=== PATIENT | female | born 1985 | race Caucasian/White ===

== ENCOUNTER 2017-12-28 01:44 | Emergency (ER) | END 2017-12-28 01:56 | disposition left against medical advice (07) | LOC: ERS 01:44 | DX: Z53.21 Procedure and treatment not carried out due to patient leaving prior to being seen by health care provider (principal) ==

== ENCOUNTER 2017-12-28 06:28 | Emergency (ER) | payer SELFPAY ==
--- NOTE | 2017-12-28 07:37 | RAD ---
THREE VIEWS THORACIC SPINE: DATE: 12/28/17. HISTORY: Back injury. FINDINGS: The upper thoracic spine on the lateral view is partially obscured due to overlying osseous structure s. However, no vertebral body height loss is present. No definite fracture is seen, and there is no evidence of a subluxation. No other findings. IMPRESSION: No acute osseous abnormality visualized. POS: RICHELLE
--- NOTE | 2017-12-28 07:39 | RAD ---
THREE VIEWS LUMBAR SPINE: DATE: 12/28/17. HISTORY: Low back injury. FINDINGS: T12 ribs are hypoplastic. There are 5 [id number] lumbar-type vertebral bodies. Vertebral body heights are within normal limits. There is mild narrowing of the L5-S1 intervertebral disk space. T here is no fracture or subluxation seen involving the lumbar spine. There is straightening of normal lumbar curvature. IMPRESSION: No acute osseous abnormality involving the lumbar spine. POS: JORJE
[2017-12-28] MEDS ORDERED: Ketorolac Tromethamine 60 MG/2 ML VIAL ONE (07:42)
== END 2017-12-28 08:27 | disposition home or self-care (01) ==
LOC: ERS 06:28
DX: S39.012A Strain of muscle, fascia and tendon of lower back, initial encounter (principal); F17.210 Nicotine dependence, cigarettes, uncomplicated; W10.9XXA Fall (on) (from) unspecified stairs and steps, initial encounter
CPT/HCPCS: 72072; 72100; 96372; J1885

== ENCOUNTER 2018-01-27 05:45 | Emergency (ER) | payer SELFPAY ==
[2018-01-27] MEDS ORDERED: Ondansetron PF 4 MG/2 ML Vial ONE (06:04)
[2018-01-27] MEDS ORDERED: Metoclopramide HCl 10 MG/2 ML VIAL ONE (06:17)
[2018-01-27 06:28] LABS: #Eosinphils 0.1 thou/uL (0.0-0.7); #Monocytes 0.4 thou/uL (0.11-0.59); %Basophils 0.4 % (0.0-1.0); %Eosinophils 0.8 % (0.0-10.0); %Lymphocytes 19.2 % (21.0-51.0); %Monocytes 4.2 % (0.0-10.0); %Neutrophils 75.4 % (42.0-75.0); Hemoglobin 13.2 g/dL (12.0-16.0); Mean Corpuscular HGB CONC 33.3 g/dL (32.0-36.0); Mean Corpuscular Hemoglobin 32.5 pg (27.0-31.0); Mean Corpuscular Volume 97.4 fL (78.0-98.0); Mean Platelet Volume 7.2 fL (7.4-10.4); Platelet Count 274 thou/uL (130-400); RBC Distribution Width 14.5 % (11.5-14.5); Red Blood Cell (RBC) Count 4.07 mill/uL (4.20-5.40); White Blood Cell (WBC) Count 10.6 thou/uL (4.8-10.8)
[2018-01-27 06:32] LABS: BHCG - Serum Negative (NEGATIVE); Pregs Control Background? CLEAR/WHITE (CLR/WHITE); Pregs Control Bar Appear? YES (CONTROL BAR)
[2018-01-27 06:39] LABS: ALT (SGPT) 9 U/L (8-55); AST (SGOT) 58 U/L (5-34); Albumin 3.9 g/dL (3.5-5.0); Alkaline Phosphatase 131 U/L (40-150); Anion Gap 18 mmol/L (10-20); BUN (Urea Nitrogen) 9 mg/dL (7.0-18.7); Bilirubin, Total 1.3 mg/dL (0.2-1.2); Calc. Creatinine Clearance 0 mL/min (70-130); Carbon Dioxide 28 mmol/L (22-29); Chloride 93 mmol/L (98-107); Estimated GFR-MDRD 83; Globulin 4.4 g/dL (2.4-3.5); Glucose 204 mg/dL (70-105); Potassium 3.2 mmol/L (3.5-5.1); Protein, Total 8.3 g/dL (6.0-8.3); Sodium 136 mmol/L (136-145)
[2018-01-27] MEDS ORDERED: Pantoprazole 40 MG VIAL ONE (08:53)
[2018-01-27] MEDS ORDERED: diphenhydrAMINE 50 MG/ML VIAL ONE (08:53)
[2018-01-27] MEDS ORDERED: Milk Of Magnesia 30 ML UDCUP ONE (09:37)
[2018-01-27] MEDS ORDERED: Lidocaine Viscous Sol 2% 15 ml UD Cup ONE (09:37)
[2018-01-27] MEDS ORDERED: Pot Chloride/Pot Bicarb/Cit Ac 25 mEq Effervescent Tablet PO SCH (11:00)
== END 2018-01-27 11:09 | disposition home or self-care (01) ==
LOC: ERS 05:45
DX: R11.2 Nausea with vomiting, unspecified (principal); R10.13 Epigastric pain; F17.210 Nicotine dependence, cigarettes, uncomplicated; Z71.6 Tobacco abuse counseling
CPT/HCPCS: 80053; 83690; 84703; 85025; 96361; 96365; 96366; 96375; 99406; C9113; J1200; J2405; J2765

== ENCOUNTER 2018-03-04 06:27 | Emergency (ER) | payer SELFPAY ==
[2018-03-04 07:48] LABS: #Eosinphils 0.2 thou/uL (0.0-0.7); #Lymphocytes 2.3 thou/uL (1.20-3.40); #Monocytes 0.6 thou/uL (0.11-0.59); #Neutrophils 4.2 thou/uL (1.40-6.50); %Basophils 0.7 % (0.0-1.0); %Eosinophils 2.5 % (0.0-10.0); %Lymphocytes 31.9 % (21.0-51.0); Hemoglobin 11.8 g/dL (12.0-16.0); Mean Corpuscular Hemoglobin 32.2 pg (27.0-31.0); Mean Corpuscular Volume 97.5 fL (78.0-98.0); Mean Platelet Volume 7.7 fL (7.4-10.4); Platelet Count 277 thou/uL (130-400); RBC Distribution Width 16.4 % (11.5-14.5); Red Blood Cell (RBC) Count 3.68 mill/uL (4.20-5.40); White Blood Cell (WBC) Count 7.3 thou/uL (4.8-10.8)
[2018-03-04 08:44] LABS: ALT (SGPT) 17 U/L (8-55); AST (SGOT) 102 U/L (5-34); Albumin 3.9 g/dL (3.5-5.0); Alkaline Phosphatase 142 U/L (40-150); Anion Gap 16 mmol/L (10-20); BUN (Urea Nitrogen) 12 mg/dL (7.0-18.7); Bilirubin, Total 0.8 mg/dL (0.2-1.2); Calc. Creatinine Clearance 0 mL/min (70-130); Calcium 10.1 mg/dL (7.8-10.44); Carbon Dioxide 16 mmol/L (22-29); Chloride 109 mmol/L (98-107); Estimated GFR-MDRD Greater than 90; Globulin 4.4 g/dL (2.4-3.5); Glucose 175 mg/dL (70-105); Potassium 4.3 mmol/L (3.5-5.1); Protein, Total 8.3 g/dL (6.0-8.3); Sodium 137 mmol/L (136-145)
[2018-03-04] MEDS ORDERED: Ketorolac Tromethamine 30 MG/ML VIAL ONE (10:21)
[2018-03-04 11:20] LABS: Bilirubin Small (Negative); Blood, Urine Large (Negative); Clarity CLOUDY (Clear); Glucose, Urine (Dipstick) Negative (Negative); Leukocyte Negative (Negative); Nitrite Negative (Negative); Protein, Urine (Dipstick) Trace mg/dL (Neg-Trace); Specific Gravity, Urine 1.034 (1.002-1.036); Urobilinogen 0.2 mg/dL (0.2-1.0); pH, Urine 5.5 (5.0-9.0)
[2018-03-04 11:26] LABS: Bacteria/HPF None Seen HPF (None Seen); Hyaline Casts/LPF 4-6 HYALINE CAST LPF (0-3 Hyaline); Pathc Cast-AUWi Flag 0.87 (0-2.49); RBC/HPF 21-50 HPF (0-3); Squamous Epithelial 0-3 HPF (0-3); WBC/HPF 0-3 HPF (0-3)
[2018-03-04 11:29] LABS: Amphetamine Not Detected (NotDetected); Barbiturates Screen Not Detected (NotDetected); Benzodiazepine Screen Not Detected (NotDetected); Cocaine Metabolite Screen Not Detected (NotDetected); Medtox Control Line Valid? VALID (VALID); Medtox Reader # READER 1; Methadone Not Detected (NotDetected); Methamphetamine Not Detected (NotDetected); Opiate Screen Not Detected (NotDetected); Oxycodone Screen Not Detected (NotDetected); Phencyclidine (PCP) Not Detected (NotDetected); THC/Cannabinoid Screen Not Detected (NotDetected); Tricyclic Screen Detected (NotDetected)
== END 2018-03-04 11:42 | disposition home or self-care (01) ==
LOC: ERS 06:27
DX: G62.9 Polyneuropathy, unspecified (principal); K21.9 Gastro-esophageal reflux disease without esophagitis; F41.9 Anxiety disorder, unspecified; F32.9 Major depressive disorder, single episode, unspecified; F17.210 Nicotine dependence, cigarettes, uncomplicated; Z79.899 Other long term (current) drug therapy
CPT/HCPCS: 36415; 80053; 80306; 81003; 81015; 85025; 96361; 96374; J1885